=== PATIENT | female | born 1995 | race American Indian/Alaskan Native ===

== ENCOUNTER 2021-07-14 17:38 | Emergency (ER) | payer OTHER ==
[2021-07-14 20:13] VITALS: BP 101/61
[2021-07-14 20:34] LABS: Hematocrit 38.5 % (30.3-42.9); Hemoglobin 13.5 gm/dl (10.1-14.3); Mean Corpuscular HGB Conc 35 % (30-34); Mean Corpuscular Volume 83 fl (79-97); Platelet Count 182 K/mm3 (140-440); Red Blood Count 4.65 M/mm3 (3.65-5.03); Red Cell Distribution Width 14.3 % (13.2-15.2)
[2021-07-14 20:35] LABS: Basophils % (Auto) 0.6 % (0.0-1.8); Eosinophils % (Auto) 0.1 % (0.0-4.3); Lymphocytes # (Auto) 1.5 K/mm3 (1.2-5.4); Lymphocytes % (Auto) 18.7 % (13.4-35.0); Monocytes # (Auto) 1.2 K/mm3 (0.0-0.8); Monocytes % (Auto) 15.3 % (0.0-7.3)
[2021-07-14 20:56] LABS: Alanine Aminotransferase 21 units/L (7-56); Albumin 4.1 g/dL (3.9-5); BUN/Creatinine Ratio 8; Blood Urea Nitrogen 11 mg/dL (7-17); Calcium 9.3 mg/dL (8.4-10.2); Hemolysis Index 4
[2021-07-14] MEDS ORDERED: FAMOTIDINE 20 MG/2 ML INJ IV ONE (22:03)
[2021-07-14] MEDS ORDERED: ONDANSETRON 4 MG/2 ML INJ IV ONE (22:03)
[2021-07-14] MEDS ORDERED: MORPHINE 4 MG/1 ML INJ IV ONE (22:03)
[2021-07-14] MEDS ORDERED: SODIUM CHLORIDE 0.9% 1000 ML 1,000 ML IV ONE (22:03)
[2021-07-14 22:05] LABS: Bacteria,Urine 1+ /HPF (Negative); Bilirubin,Urine NEG (Negative); Blood,Urine NEG (Negative); Color,Urine Amber (Yellow); Mucus,Urine FEW /HPF
[2021-07-14 22:18] LABS: WBC,Urine > 182.0 /HPF (0.0-6.0)
[2021-07-14] MEDS ORDERED: cefTRIAXone/NS 1 GM/50 ML 1 GM/50 ML BAG IV ONE (22:45)
--- NOTE | 2021-07-14 23:03 | Cat Scan Report ---
CT ABDOMEN AND PELVIS WITH CONTRAST INDICATION / CLINICAL INFORMATION: Pt complains of abd pain with N/V/D. TECHNIQUE: Axial CT images were obtained through the abdomen and pelvis after IV contrast. All CT sc ans at this location are performed using CT dose reduction for ALARA by means of automated exposure c ontrol. COMPARISON: None available. FINDINGS: LOWER CHEST: No significant abnormality of the imaged chest. LIVER: No significant abnormality. GALLBLADDER: No significant abnormality. BILE DUCTS: No significant abnormality. SPLEEN: No significant abnormality. PANCREAS: No significant abnormality. ADRENALS: No significant abnormality. RIGHT KIDNEY / URETER: The right kidney demonstrates the appearance of a striated nephrogram. Minimal stranding is noted along the right renal pelvis. LEFT KIDNEY / URETER: Small corticomedullary cyst suggested mid kidney. STOMACH / DUODENUM / SMALL BOWEL: No significant abnormality. COLON: Moderate amount of fluid noted throughout the large bowel. Air-fluid levels are present throug hout. APPENDIX: No significant abnormality. PERITONEUM: No free air or free fluid are present within the abdomen or pelvis. LYMPH NODES: No significant adenopathy. AORTA / ARTERIES: No significant abnormality. IVC / VEINS: No significant abnormality. URINARY BLADDER: No significant abnormality. REPRODUCTIVE ORGANS: IUD is present within the uterine fundus. The uterus and bilateral ovaries demon strate no significant abnormalities. ADDITIONAL ABDOMINAL/PELVIC FINDINGS: None. SKELETAL SYSTEM: No significant abnormality. IMPRESSION: 1. The appearance of the right kidney suggests pyelonephritis. Correlation with urinalysis and cultur e recommended. 2. Large bowel is moderately distended and filled with fluid and multiple air fluid levels present. T his could reflect evidence of diarrheal illness. Signer Name: Mauricio Mason II, MD Signed: 07/14/2021 10:59 PM Workstation Name: [id number]
--- NOTE | 2021-07-15 00:35 | Emergency Department Report ---
ED Abdominal Pain HPI - General Chief Complaint: Abdominal Pain Stated Complaint: BODY PAIN/VOMITING Source: patient Mode of arrival: Ambulatory Limitations: No Limitations - History of Present Illness Initial Comments: Patient is a A0 25-year-old -[place] female with no past medical history presents to the ED with complaint of acute onset persistent diffuse lower abdominal pain with nausea and vomiting for the last 3 days. Patient states that the lower abdominal pain radiates to the right flank constantly. Patient also complains of diarrhea. Patient states that no one else at home has had similar symptoms. Patient denies dizziness, syncope, chest pain or shortness of breath, fever, chills, vaginal bleeding, vaginal discharge, dysuria, urinary frequency and urgency. MD Complaint: abdominal pain (Lower), other (Nausea and vomiting and diarrhea) -: Sudden, days(s) (3) Location: LLQ, RLQ, suprapubic, R flank Radiation: LLQ, RLQ, R flank Migration to: no migration Severity scale (0 -10): 8 Quality: cramping, aching, sharp Consistency: constant Improves With: nothing Worsens With: nothing Context: possible food poisoning Associated Symptoms: denies other symptoms, nausea, vomiting, diarrhea, anorexia. denies: fever, chills, constipation, dysuria, hematochezia, melena, hematuria, syncope - Related Data LMP Date: 07/03/21 Previous Rx's Medication Instructions Recorded Last Taken Type Docusate Sodium [Colace] 100 mg PO BID PRN #30 capsule 12/14/19 Unknown Rx Ferrous Sulfate [Feosol 325 MG tab] 325 mg PO BID #90 tablet 12/14/19 Unknown Rx Ibuprofen [Motrin 800 MG tab] 800 mg PO TID PRN #30 tablet 12/14/19 Unknown Rx Lidocain2.5%/Prilocai2.5% [Emla] 5 gm TP ONCE #1 tube 12/14/19 Unknown Rx oxyCODONE /ACETAMINOPHEN [Percocet 1 - 2 tab PO Q6HR PRN #14 tablet 12/14/19 Unknown Rx 5/325 mg] Acetaminophen [Tylenol] 500 mg PO Q6HR PRN #30 tablet 07/15/21 Unknown Rx Ondansetron [Zofran Odt] 4 mg PO Q6HR PRN #20 tab.rapdis 07/15/21 Unknown Rx Sulfamethoxazole/Trimethoprim 1 each PO Q12H #20 tab 07/15/21 Unknown Rx [Bactrim DS TAB] traMADoL [Ultram] 50 mg PO Q6HR PRN #12 tablet 07/15/21 Unknown Rx Allergies Allergy/AdvReac Type Severity Reaction Status Date / Time No Known Allergies Allergy Unverified 10/10/19 21:19 ED Review of Systems ROS: Stated complaint: BODY PAIN/VOMITING Other details as noted in HPI Constitutional: denies: chills, fever Eyes: denies: eye pain, eye discharge, vision change ENT: denies: ear pain, throat pain Respiratory: denies: cough, shortness of breath, wheezing Cardiovascular: denies: chest pain, palpitations Endocrine: no symptoms reported Gastrointestinal: abdominal pain, nausea, vomiting, diarrhea Genitourinary: denies: urgency, dysuria, discharge Musculoskeletal: denies: back pain, joint swelling, arthralgia Skin: denies: rash, lesions Neurological: denies: headache, weakness, paresthesias Psychiatric: denies: anxiety, depression Hematological/Lymphatic: denies: easy bleeding, easy bruising ED Past Medical Hx - Past Medical History Previous Medical History?: No Hx Hypertension: No Hx Heart Attack/AMI: No Hx Congestive Heart Failure: No Hx Diabetes: No Hx Deep Vein Thrombosis: No Hx Liver Disease: No Hx Renal Disease: No Hx Sickle Cell Disease: No Hx Seizures: No Hx Asthma: No Hx COPD: No Hx HIV: No - Surgical History Past Surgical History?: Yes Hx Pacemaker: No Hx Internal Defibrillator: No Additional Surgical History: c-sec x 1 - Social History Smoking Status: Never Smoker - Medications Home Medications: Home Medications Medication Instructions Recorded Confirmed Last Taken Type Docusate Sodium [Colace] 100 mg PO BID PRN #30 capsule 12/14/19 Unknown Rx Ferrous Sulfate [Feosol 325 MG tab] 325 mg PO BID #90 tablet 12/14/19 Unknown Rx Ibuprofen [Motrin 800 MG tab] 800 mg PO TID PRN #30 tablet 12/14/19 Unknown Rx Lidocain2.5%/Prilocai2.5% [Emla] 5 gm TP ONCE #1 tube 12/14/19 Unknown Rx oxyCODONE /ACETAMINOPHEN [Percocet 1 - 2 tab PO Q6HR PRN #14 tablet 12/14/19 Unknown Rx 5/325 mg] Acetaminophen [Tylenol] 500 mg PO Q6HR PRN #30 tablet 07/15/21 Unknown Rx Ondansetron [Zofran Odt] 4 mg PO Q6HR PRN #20 tab.rapdis 07/15/21 Unknown Rx Sulfamethoxazole/Trimethoprim 1 each PO Q12H #20 tab 07/15/21 Unknown Rx [Bactrim DS TAB] traMADoL [Ultram] 50 mg PO Q6HR PRN #12 tablet 07/15/21 Unknown Rx ED Physical Exam - General Limitations: No Limitations General appearance: alert, in no apparent distress - Head Head exam: Present: atraumatic, normocephalic, normal inspection - Eye Eye exam: Present: normal appearance, PERRL, EOMI Pupils: Present: normal accommodation - ENT ENT exam: Present: normal exam, normal orophraynx, mucous membranes moist, TM's normal bilaterally, normal external ear exam - Neck Neck exam: Present: normal inspection, full ROM. Absent: tenderness, lymphadenopathy - Respiratory Respiratory exam: Present: normal lung sounds bilaterally. Absent: respiratory distress, wheezes, rhonchi, stridor, chest wall tenderness, accessory muscle use, decreased breath sounds, prolonged expiratory - Cardiovascular Cardiovascular Exam: Present: normal rhythm, tachycardia, normal heart sounds. Absent: systolic murmur, diastolic murmur, rubs, gallop - GI/Abdominal GI/Abdominal exam: Present: soft, tenderness (Palpable diffuse lower abdominal tenderness; palpable right CVA tenderness), normal bowel sounds. Absent: guarding, rebound, hyperactive bowel sounds, hypoactive bowel sounds, organomegaly, bruit - Bi-manual exam: Present: other (Pelvic exam deferred at this time) - Extremities Exam Extremities exam: Present: normal inspection, full ROM, normal capillary refill - Back Exam Back exam: Present: normal inspection, full ROM. Absent: tenderness, CVA tenderness (R), CVA tenderness (L), muscle spasm, paraspinal tenderness, vertebral tenderness - Neurological Exam Neurological exam: Present: alert, oriented X3, CN II-XII intact, normal gait, reflexes normal - Psychiatric Psychiatric exam: Present: normal affect, normal mood - Skin Skin exam: Present: warm, dry, intact, normal color. Absent: rash ED Course Vital Signs 07/14/21 20:04 Temperature 99.5 F Pulse Rate 106 H Respiratory 17 Rate Blood Pressure 101/61 [Right] O2 Sat by Pulse 99 Oximetry ED Medical Decision Making - Lab Data Result diagrams: 07/14/21 20:22 07/14/21 20:22 - Radiology Data Radiology results: report reviewed, image reviewed [facility] [address] [place] [address] Cat Scan Report Signed Patient: ALEXANDER SPENCE MR#: [id number] : 1995 Acct:[id number] Age/Sex: 25 / F ADM Date: 07/14/21 Loc: ED Attending Dr: Ordering Physician: KRISTEN POWERS Date of Service: 07/14/21 Procedure(s): CT abdomen pelvis w con Accession Number(s): [id number] cc: KRISTEN POWERS CT ABDOMEN AND PELVIS WITH CONTRAST INDICATION / CLINICAL INFORMATION: Pt complains of abd pain with N/V/D. TECHNIQUE: Axial CT images were obtained through the abdomen and pelvis after IV contrast. All CT scans at this location are performed using CT dose reduction for ALARA by means of automated exposure control. COMPARISON: None available. FINDINGS: LOWER CHEST: No significant abnormality of the imaged chest. LIVER: No significant abnormality. GALLBLADDER: No significant abnormality. BILE DUCTS: No significant abnormality. SPLEEN: No significant abnormality. PANCREAS: No significant abnormality. ADRENALS: No significant abnormality. RIGHT KIDNEY / URETER: The right kidney demonstrates the appearance of a striated nephrogram. Minimal stranding is noted along the right renal pelvis. LEFT KIDNEY / URETER: Small corticomedullary cyst suggested mid kidney. STOMACH / DUODENUM / SMALL BOWEL: No significant abnormality. COLON: Moderate amount of fluid noted throughout the large bowel. Air-fluid levels are present throughout. APPENDIX: No significant abnormality. PERITONEUM: No free air or free fluid are present within the abdomen or pelvis. LYMPH NODES: No significant adenopathy. AORTA / ARTERIES: No significant abnormality. IVC / VEINS: No significant abnormality. URINARY BLADDER: No significant abnormality. REPRODUCTIVE ORGANS: IUD is present within the uterine fundus. The uterus and bilateral ovaries demonstrate no significant abnormalities. ADDITIONAL ABDOMINAL/PELVIC FINDINGS: None. SKELETAL SYSTEM: No significant abnormality. IMPRESSION: 1. The appearance of the right kidney suggests pyelonephritis. Correlation with urinalysis and culture recommended. 2. Large bowel is moderately distended and filled with fluid and multiple air fluid levels present. This could reflect evidence of diarrheal illness. Signer Name: Jono Mason II, MD Signed: 07/14/2021 10:59 PM Workstation Name: [id number] Transcribed By: JAKE Dictated By: JONO MASON II, MD Electronically Authenticated By: JONO MASON II, MD Signed Date/Time: 07/14/212258 DD/ 55 TD/TT: - Medical Decision Making This is a A0 25-year-old -[place] female with no past medical history presents to the ED with complaint of acute onset persistent diffuse lower abdominal pain with nausea and vomiting for the last 3 days. Patient states that the lower abdominal pain radiates to the right flank constantly. Patient also complains of diarrhea. Patient states that no one else at home has had similar symptoms. In the ED, patient is alert and oriented x3 and is not in any distress but appears to be in pain. Patient is tachycardic and afebrile in triage. Patient was treated for pain in the ED and also treated with antiemetics and given normal saline 1 L IV bolus x1. Lab test results were re viewed and showed significant urinary tract infection and creatinine level 1.3. The rest of the lab test results are nonactionable. Abdomen pelvis CT scan with contrast showed the appearance of the right kidney that suggests pyelonephritis. Correlation with urinalysis and culture recommended. It also showed a large bowel is moderately distended and filled with fluid and multiple air fluid levels present. This could reflect evidence of diarrheal illness. Patient was therefore treated with Rocephin 1 g IV x1. On reevaluation, patient's pain is well controlled medication. Patient will discharge home on pain medications and antibiotics as well as antiemetic prescriptions. Patient is advised to drink plenty of fluids, take medications and follow-up with her primary care physician in 7 to 10 days for reevaluation. Patient was advised return to the ED immediately if symptoms get worse. - Differential Diagnosis UTI; appendicitis; kidney stone; ; colitis; ovarian cyst Critical care attestation.: If time is entered above; I have spent that time in minutes in the direct care of this critically ill patient, excluding procedure time. ED Disposition Clinical Impression: Abdominal pain, suprapubic, Nausea, vomiting and diarrhea, Acute urinary tract infection, Dehydration, Acute pyelonephritis Disposition: 01 HOME / SELF CARE / HOMELESS Is pt being admited?: No Does the pt Need Aspirin: No Condition: Stable Instructions: Abdominal Pain (ED), Pelvic Pain, Female, [id number]-bs-[id number], Dehydration, Adult, Ioic-xj-Mxwj, Abdominal Pain, Adult, Eszf-jk-Pkwt, Pyelo nephritis, Adult, Vock-tm-Aggh, Nausea and Vomiting, Adult, Dgct-bs-Mwcg, Urinary Tract Infection, Adult, Xfuy-[id number], Diarrhea, Adult, Iavy-dn-Shxp Additional Instructions: All lab test results were reviewed and are all nonactionable except for elevated creatinine level significant for dehydration, also significant urinary tract infection. The abdomen pelvis CT scan with contrast showed appearance of the right kidney suggests pyelonephritis. Therefore take medications with food, drink plenty of fluids and follow-up with your primary care physician in 7 to 10 days for reevaluation. Return to the ED immediately if symptoms get worse. Prescriptions: Acetaminophen [Tylenol] 500 mg PO Q6HR PRN #30 tablet PRN Reason: Pain , Severe (7-10) Sulfamethoxazole/Trimethoprim [Bactrim DS TAB] 1 each PO Q12H #20 tab traMADoL [Ultram] 50 mg PO Q6HR PRN #12 tablet PRN Reason: Pain Ondansetron [Zofran Odt] 4 mg PO Q6HR PRN #20 tab.rapdis PRN Reason: Nausea Referrals: [facility] [Provider Group] - 7-10 days Forms: Work/School Release Form(ED) Time of Disposition: 00:39 Print Language: CROATIAN
== END 2021-07-15 01:15 | disposition home or self-care (01) ==
LOC: ED 17:38
DX: R10.9 Unspecified abdominal pain (principal); R11.2 Nausea with vomiting, unspecified; R19.7 Diarrhea, unspecified; N39.0 Urinary tract infection, site not specified; E86.0 Dehydration; N10 Acute pyelonephritis
CPT/HCPCS: 36415; 74177; 80053; 81001; 83690; 84702; 85025; 96365; 96375; 99284; J0696; J2270; J2405; J3490; J7030; Q9967; Q0162

== ENCOUNTER 2021-12-11 10:14 | Emergency (ER) | payer OTHER ==
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
[2021-12-11 13:00] VITALS: BP 100/60
== END 2021-12-11 17:38 | disposition home or self-care (01) ==
LOC: ED 10:14
DX: M25.511 Pain in right shoulder (principal); V89.2XXA Person injured in unspecified motor-vehicle accident, traffic, initial encounter; Y93.89 Activity, other specified; Y92.89 Other specified places as the place of occurrence of the external cause; Y99.8 Other external cause status
CPT/HCPCS: 99282